=== PATIENT | female | born 1955 ===

== ENCOUNTER 2020-07-23 07:31 | Day surgery (SDC) | payer BC ==
[~2020-07-23 07:31] MED LIST: ALPRAZOLAM XR1 MG PO; CYMBALTA60 MG PO; DEXILANT60 MG PO; LEVOTHYROXINE25 MCG PO; MULTI-VITAMIN1 EACH PO; PROZAC20 MG PO; TOPROL XL25 M1 PO
[2020-07-23] MEDS ORDERED: PERCOCET 5-3251 EACH PO (11:18)
== END 2020-07-23 14:23 | disposition home or self-care (01) ==
LOC: CIR.AMB 07:31 → ADM 11:45 → CIR.AMB 11:45
PROVIDERS: ATTEND Surgery
DX: D35.1 Benign neoplasm of parathyroid gland (principal); Z20.828 Contact with and (suspected) exposure to other viral communicable diseases